=== PATIENT | male | born 1945 | race Caucasian/White ===

== ENCOUNTER 2017-03-07 14:15 | Emergency (ER) | payer OTHER ==
[~2017-03-07] VITALS: Ht 180.3 cm; Wt 90.7 kg
[2017-03-07 14:25] VITALS: BP_SYST 136
[2017-03-07] MEDS ORDERED: DIPH-TET-PERTUS Vaccine 0.5 ML VIAL (ADACEL) I.M. ONE (14:45)
[2017-03-07 15:06] VITALS: BP_SYST 156
== END 2017-03-07 15:06 | disposition home or self-care (01) ==
LOC: SED 14:15
DX: S01.01XA Laceration without foreign body of scalp, initial encounter (principal); Z95.1 Presence of aortocoronary bypass graft; Z88.1 Allergy status to other antibiotic agents; W18.30XA Fall on same level, unspecified, initial encounter; Y93.02 Activity, running; Y92.89 Other specified places as the place of occurrence of the external cause; Y99.8 Other external cause status
CPT/HCPCS: 90715; 99283